=== PATIENT | female | born 2000 | race Caucasian/White ===

== ENCOUNTER → 2019-09-15 | Outpatient (CLI) | payer BC, MEDICAID ==
[~2019-09-15] MED LIST: ALDA100T PO; MULTCAP PO; ORTH1TAB8 PO
== END ==
LOC: M LABSMTC 10:04
PROVIDERS: ATTEND Anesthesiology
DX: Z11.59 Encounter for screening for other viral diseases (principal); Z03.89 Encounter for observation for other suspected diseases and conditions ruled out
CPT/HCPCS: C9803; U0003

== ENCOUNTER 2019-09-18 06:11 | Day surgery (SDC) | payer OTHER ==
[~2019-09-18] VITALS: Ht 157.5 cm; Wt 55.8 kg
[2019-09-18] MEDS ORDERED: LR 1,000 ML IV ONE (07:00)
[2019-09-18] MEDS ORDERED: ceFAZolin SOD 2 GM in IV 1 EA IV ONE (07:00)
[2019-09-18] MEDS ORDERED: dexameTHASONE 4 MG/ML 1ML VIAL (J1100 PER 1MG) As Ordered ONE (07:11)
[2019-09-18] MEDS ORDERED: propofoL 200 MG/20 ML VIAL As Ordered ONE (07:11)
[2019-09-18] MEDS ORDERED: ONDANSETRON 4MG/2ML VIAL As Ordered ONE (07:11)
[2019-09-18] MEDS ORDERED: LIDOCAINE 2% 100MG/5ML SDV (FOR ANES.) As Ordered ONE (07:11)
[2019-09-18] MEDS ORDERED: fentaNYL 100 MCG/2 ML INJECTION (J3010) As Ordered ONE ×2 (07:11→08:05)
[2019-09-18] MEDS ORDERED: MIDAZOLAM INJ 2MG/2ML VIAL (J2250 PER 1MG) As Ordered ONE (07:11)
[2019-09-18] MEDS ORDERED: SCOPOLAMINE 1MG TRANSDERMAL PATCH TOP ONE (07:15)
[2019-09-18] MEDS ORDERED: ROCURONIUM BROMIDE 50 MG/5 ML VIAL As Ordered ONE (07:17)
[2019-09-18] MEDS ORDERED: METOCLOPRAMIDE INJ 10MG/2ML VIAL (J2765 PER 1) As Ordered ONE (07:18)
[2019-09-18] MEDS ORDERED: ROPIvacaine 0.5% 30ML INJECTION (J2795 PER 1MG) As Ordered ONE (07:19)
[2019-09-18] MEDS ORDERED: SUGAMMADEX SODIUM 500 MG/5 ML VIAL (BRIDION) As Ordered ONE (07:57)
[2019-09-18] MEDS ORDERED: ACETAMINOPHEN 1000MG 100ML IV BTL (OFIRMEV) (J0131 PER 10MG) As Ordered ONE (07:57)
[2019-09-18] MEDS ORDERED: KETOROLAC 60MG 2ML VIAL As Ordered ONE (07:57)
[2019-09-18] MEDS ORDERED: oxyCODONE 5MG TAB PO PRN (10:30)
[2019-09-18] MEDS ORDERED: fentaNYL 100 MCG/2 ML INJECTION (J3010) IV PRN (10:30)
[2019-09-18] MEDS ORDERED: ONDANSETRON 4MG/2ML VIAL IV PRN ×2 (10:30→10:45)
[2019-09-18] MEDS ORDERED: LR 1,000 ML IV SCH ×2 (10:30→10:45)
[2019-09-18] MEDS ORDERED: ACETAMINOPHEN TAB 650MG DOSE (2X325MG) PO PRN (10:45)
[2019-09-18] MEDS ORDERED: PERCOCET 5MG/325MG TAB PO PRN (10:45)
[2019-09-18] MEDS ORDERED: MORPHINE 2 MG/ML 1ML VIAL (J2270) IV PRN (10:45)
[2019-09-18 12:10] VITALS: BP 120/70
--- NOTE | 2019-09-19 09:54 | IPN ---
DATE: 09/18/2019 This is a voice consultation record of talking to Lisa's mother. We discussed the risk and benefits going on oral aspirin one full-strength tablet 325 mg orally once a day for 30 days after surgery for venous thromboembolism (VTE) prophylaxis. Lisa is young and relatively low risk but she did have lower extremity surgery. She may be mobilized temporarily and she is on oral contraceptive pills. Risks of going on VTE prophylaxis with the increased bleeding risk both at the surgical site as well as intracranial. After discussion with her mother, she wished go ahead on temporary VTE prophylaxis.
--- NOTE | 2019-09-19 10:15 | RO ---
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 PLANNED PROCEDURE: Right knee anterior cruciate ligament bone tunnel grafting and debridement of anterior cruciate ligament. PROCEDURE PERFORMED: Right knee anterior cruciate ligament bone tunnel grafting and debridement of anterior cruciate ligament. SURGEON: Hiro Rodarte MD IN [employer]FU[employer] OPERATOR: Marilee Costello REVENUE MANAGER: Dr. Gonzalez TYPE OF ANESTHETIC: General anesthetic. OPERATIVE PREAMBLE: This 19-year-old female is experiencing signs and symptoms as well as physical exam findings and MRI evidence of ACL insufficiency with tunnel dilation. We talked about the pros, cons, risks, benefits of going ahead with two-stage operation , first stage bone grafting, second stage hamstrings ACL autograft reconstruction. She wished to go ahead. I reiterated the risks in preoperative holding, marked the right lower extremity, and proceeded to surgery, as well as signing and updating consent form. OPERATIVE REPORT: The patient was brought to operating theater. They were administered 2 grams of intravenous (IV) Ancef. They were administered general anesthetic. All bony prominences were padded. Tourniquet was used on the right thigh, appropriately padded. Stress positioner was used on the patient's right side. Left side had a sequential compression device (SCD) used. All bony prominences were padded. Limb was prepped and draped in the usual sterile fashion, allowing over 3 minutes prep solution drying time. Preoperative time-out was performed to confirm the site, the patient, and the operation. Began by elevating the limb and inflating the tourniquet to 250 mmHg. I made standard anterolateral and anteromedial arthroscopy portals. I examined the intra-articular extent of the knee. Cartilage appeared normal throughout the knee. No obvious meniscus tears or flaps. ACL graft was stretched but in place. This was debrided, which debrided away quite easily. Did not appear fully healed into the femoral tunnel. The tibial tunnel appeared in proper position. The femoral tunnel appeared anterior; in its placement, however, it was adequately low on the wall. ACL was thoroughly debrided. I then made a small anteromedial incision overlying the anterior aspect of the tibia. I fully debrided away any remaining graft from the tunnel. I cleared away any soft tissue from the wall. I reamed up to a size 14. This appeared appropriate with good bony contact all around. I then turned my attention to the femoral side. I hyperflexed the knee. I passed the guidepin through the old graft tunnel site. I reamed this up to a size 14, which appeared appropriate. I performed a small notchplasty of approximately a millimeter on the medial side of the lateral femoral condyle. I then delivered a 14 mm plug into the femoral tunnel, Arthrex cannulated bone dowels. I inserted this flush. I had drilled to about 26 mm tunnels. I inserted the graft. I fully seated the graft. The graft was 27 mm long. I then used a bur to smooth about 1 mm of graft surface that was a little proud. I then turned my attention to the tibial side. I again inserted the bone dowel. The bone dowel proximally did fragment for a length of about 2 cm. This was removed and back-filled with AlloSync Arthrex bone putty. Graft was sitting flush with the proximal aspect of the tibial tunnel. I took final arthroscopy pictures. These were saved onto the system. I thoroughly irrigated the knee. Subcutaneous tissue was closed with 2-0 Vicryl and skin with #3-0 Monocryl. Steri-Strips were applied. 30 mL of 0.5% ropivacaine was instilled in and around the incision sites. I had to make an accessory anteromedial portal in order to pass the femoral graft. The skin was cleaned with wet and dry dressing, followed by application of Adaptic, 4 x 8 gauze, ABD dressing, and sterile 6-inch Morgan bandages. The patient was woken up from the general anesthetic, transferred off the operating table, and taken to the postanesthetic care unit in stable condition. All sponge, needle, and instrument counts were correct. No complications. ESTIMATED BLOOD LOSS: 50 mL. Plan for the patient is to be weightbearing as tolerated in a hinged knee brace. Followup in the office in 2 weeks' time. They will be discharged home according to day surgery criteria. We will wait at least 3 months for graft incorporation before obtaining a CT scan and proceeding on to second stage. SAGAR
== END 2019-09-18 12:12 | disposition home or self-care (01) ==
LOC: M SDC 06:11
PROVIDERS: ATTEND Orthopaedic Surgery Sports Medicine
DX: S83.511A Sprain of anterior cruciate ligament of right knee, initial encounter (principal); X58.XXXA Exposure to other specified factors, initial encounter; Y92.89 Other specified places as the place of occurrence of the external cause; Y93.9 Activity, unspecified; Y99.9 Unspecified external cause status; G43.909 Migraine, unspecified, not intractable, without status migrainosus; J45.909 Unspecified asthma, uncomplicated; Z79.899 Other long term (current) drug therapy
CPT/HCPCS: 29877; 29999; 81025; C1762; J0131; J0690; J1100; J1885; J2250; J2405; J2765; J2795; J3010

== ENCOUNTER → 2019-12-29 | Outpatient (CLI) | payer OTHER ==
--- NOTE | 2020-01-03 15:23 | REP ---
CT SCAN OF THE RIGHT KNEE WITHOUT CONTRAST HISTORY: Sprain of anterior cruciate ligament of the right knee. COMPARISON: CT studies from March 03, 2019. Comparison MRI study is from March 03, 2019. TECHNIQUE: Helical scanning is acquired. 3 mm axial images were reformatted. Coronal and sagittal MPR images are generated. CT FINDINGS: In the interval since the March 03, 2019, CT study, the ACL reconstruction has been revised. Radiopaque plug-type material is seen in the widened tibial and distal femoral tendon tunnels. A metallic anchor device is seen at the lateral cortex of the distal femoral tunnel. There is a faintly opaque density at the external end of the tibial tunnel. Soft tissue bulge persists at the external end of the tibial tunnel. There is a small amount of joint effusion. No Bakers cyst is seen by CT. No acute erosive changes are noted. IMPRESSION: Status post ACL revision with opaque material in the tibial and distal femoral tunnels. The interosseous tunnels were previously noted to be widened consistent with mucoid degeneration. MTDD
== END ==
LOC: M RAD 13:51
PROVIDERS: ATTEND Orthopaedic Surgery Sports Medicine
DX: S83.511D Sprain of anterior cruciate ligament of right knee, subsequent encounter (principal); X58.XXXD Exposure to other specified factors, subsequent encounter; Z87.828 Personal history of other (healed) physical injury and trauma

== ENCOUNTER → 2020-02-09 | Outpatient (CLI) | payer OTHER ==
[~2020-02-09] MED LIST changes: +CETI-36 PO; +SING10TA32 PO
== END ==
LOC: M LABSMTC 09:40
PROVIDERS: ATTEND Anesthesiology
DX: Z01.812 Encounter for preprocedural laboratory examination (principal); Z20.828 Contact with and (suspected) exposure to other viral communicable diseases

== ENCOUNTER 2020-02-14 06:19 | Day surgery (SDC) | payer OTHER ==
[~2020-02-14] VITALS: Ht 157.5 cm; Wt 57.2 kg
[2020-02-14] MEDS ORDERED: ceFAZolin SOD 2 GM in IV 1 EA IV ONE (07:00)
[2020-02-14] MEDS ORDERED: LR 1,000 ML IV ONE (07:00)
[2020-02-14] MEDS ORDERED: ROCURONIUM BROMIDE 50 MG/5 ML VIAL As Ordered ONE (07:15)
[2020-02-14] MEDS ORDERED: propofoL 200 MG/20 ML VIAL As Ordered ONE ×2 (07:15→08:54)
[2020-02-14] MEDS ORDERED: SCOPOLAMINE 1MG TRANSDERMAL PATCH TOP ONE (07:15)
[2020-02-14] MEDS ORDERED: LIDOCAINE 2% 100MG/5ML SDV (FOR ANES.) As Ordered ONE ×3 (07:15→07:22)
[2020-02-14] MEDS ORDERED: fentaNYL 100 MCG/2 ML INJECTION (J3010) As Ordered ONE ×2 (07:16→10:02)
[2020-02-14] MEDS ORDERED: dexameTHASONE 4 MG/ML 1ML VIAL (J1100 PER 1MG) As Ordered ONE (07:16)
[2020-02-14] MEDS ORDERED: ONDANSETRON 4MG/2ML VIAL As Ordered ONE (07:16)
[2020-02-14] MEDS ORDERED: MIDAZOLAM INJ 2MG/2ML VIAL (J2250 PER 1MG) As Ordered ONE ×3 (07:16→11:11)
[2020-02-14] MEDS ORDERED: ROPIvacaine 0.5% 30ML INJECTION (J2795 PER 1MG) As Ordered ONE (07:16)
[2020-02-14] MEDS ORDERED: KETOROLAC 60MG 2ML VIAL As Ordered ONE (09:39)
[2020-02-14] MEDS ORDERED: ACETAMINOPHEN 1000MG 100ML IV BTL (OFIRMEV) (J0131 PER 10MG) As Ordered ONE (09:40)
[2020-02-14] MEDS ORDERED: HYDROMORPHONE HCL 0.5 MG/ 0.5 ML SYRINGE (J1170 PER 1) IV PRN (11:15)
[2020-02-14] MEDS ORDERED: PERCOCET 5MG/325MG TAB PO PRN (11:15)
[2020-02-14] MEDS ORDERED: oxyCODONE 5MG TAB PO PRN (11:15)
[2020-02-14] MEDS ORDERED: ACETAMINOPHEN TAB 650MG DOSE (2X325MG) PO PRN (11:15)
[2020-02-14] MEDS ORDERED: fentaNYL 100 MCG/2 ML INJECTION (J3010) IV PRN (11:15)
[2020-02-14] MEDS ORDERED: LR 1,000 ML IV SCH ×2 (11:15)
[2020-02-14] MEDS ORDERED: ONDANSETRON 4MG/2ML VIAL IV PRN ×2 (11:15)
[2020-02-14] MEDS ORDERED: MORPHINE 2 MG/ML 1ML VIAL (J2270) IV PRN (11:15)
[2020-02-14 12:30] VITALS: BP 112/53
--- NOTE | 2020-02-22 12:23 | RO ---
OPERATIVE NOTE DATE OF OPERATION: 02/14/2020 PREOPERATIVE DIAGNOSIS: Right ACL tear. POSTOPERATIVE DIAGNOSIS: Right ACL tear. PLANNED PROCEDURE: Right knee hamstring ACL reconstruction. PROCEDURE PERFORMED: Right knee hamstring ACL reconstruction. SURGEON: Hiro Rodarte MD ANESTHESIOLOGIST: Dr. Leonard. ANESTHESIA: General anesthetic. EXECUTIVE PERSONAL ASSISTANT: Jayesh Bill PA-C OPERATIVE PREAMBLE: This is a 19-year-old female who had two allograft-failed ACL reconstructions. We performed first-stage bone grafting. She is here today a second-stage ACL reconstruction with hamstring autograft. We answered her questions. We saw her in the preoperative holding area, marked the right lower extremity and proceeded to surgery. OPERATIVE REPORT: The patient was brought to the operating theater. She was administered 2 gm IV Ancef. She was placed supine on the operating room table. A stress positioner was used to the patient's right side, a small bump under the hip. All bony prominences were appropriately padded. General anesthesia was induced. A tourniquet was applied to the thigh and appropriately padded. The limb was prepped and draped in the usual sterile fashion with chlorhexidine based prep solution, allowing over 3 minutes for prep solution drying time prior to draping. A preoperative timeout was performed, confirming the site, the patient and surgery. I began by elevating the limb, then inflating the tourniquet to 250 mmHg for approximately 90 minutes through the duration of the case. I used the previous anteromedial incision. I carried dissection down through skin and subcutaneous tissue, achieving meticulous hemostasis. I used an oblique incision overlying the sartorial fascia. Then I held this with the two hamstring tendons, sharply excised them off the proximal anterior tibia and placed . I then the tendons, cleared away any soft tissue. I put them end-on-end and sutured each end with #2 FiberWire for a length of 2.5 cm. I used a triple-over technique with #2 FiberWire locking loop stitches, burying the knot at 1 and 2 cm from each end of the graft. I used the TightRope ____ on the femoral side ____ system on the tibial side. Graft size 10 mm on both sides to allow for a length of 6.5 cm. The graft was placed on tension and wrapped with a wet sponge. I then turned my attention back to the knee. I made standard anterolateral and anteromedial portals. I cleared away any soft tissue. Bone graft appeared to be healed. I attempted to have arthroscopy pictures throughout the case and saved them on the system. The lateral meniscus had a small area of previous meniscectomy. The area was inspected, no obvious new tears in the medial or lateral meniscus. The cartilage appeared normal, no obvious loose body in the medial or lateral gutter. The patellofemoral cartilage appeared normal. I used the FlipCutter instead of a drill to drill an approximately 3 cm tunnel retrograde in the femoral side with approximately 1 cm cortical bridge. On the tibial side, I again used a 10 mm third-generation FlipCutter to retrograde drill a 4 cm tunnel with a 1 cm flexible cortical bridge. I cleared away interposed soft tissue and bony debris. I then passed the graft. I used sutures into the femoral tunnel. I secured the femoral side graft for a length of approximately 2.5 to 3 cm. I then passed the suture materials through the tibial tunnel. I used the standard ABS button loop system sutures to secure the ____ button. The graft was stable and solid, stable Funmilayo, firm endpoint. The knee was cycled prior to fixation at least 15 times. No graft impingement in extension or in the notch. The graft was stable and solid. Then I backed up the tibial fixation with a 4.25 mm biocomposite Arthrex SwiveLock with the backup sutures. All suture ends were cut short. The wounds were thoroughly irrigated. The subcutaneous tissue was closed with interrupted 2-0 Vicryl sutures and the skin with 3-0 Monocryl. The skin was cleaned with wet and dry dressing. 20 mL of 1/4% Marcaine was instilled in and around the soft tissues. Steri-Strips, Adaptic, 4 x 8 gauze and ABD dressing was the placed and overwrapped with sterile 6-inch Morgan bandage. The patient was reversed from anesthetic, transferred off the operating room table and then taken to the postanesthetic care unit in stable condition. All sponge, needle, and instrument counts were correct. No complications. Estimated blood loss: 100 mL. Plan for the patient is to be range of motion as tolerated, weightbearing as tolerated. She will be on crutches for two weeks, be discharged home according to day surgery criteria. Prescription will be sent to her pharmacy of choice electronically. The assistance, Jayesh Bill PA-C, was instrumental in holding the retractors, achieving positions and completing the case.
== END 2020-02-14 12:30 | disposition home or self-care (01) ==
LOC: M SDC 06:19
PROVIDERS: ATTEND Orthopaedic Surgery Sports Medicine
DX: S83.31XA Tear of articular cartilage of right knee, current, initial encounter (principal); Y92.89 Other specified places as the place of occurrence of the external cause; Y93.9 Activity, unspecified; Y99.9 Unspecified external cause status; F41.9 Anxiety disorder, unspecified; G43.909 Migraine, unspecified, not intractable, without status migrainosus; Z79.899 Other long term (current) drug therapy
CPT/HCPCS: 27427; 81025; C1713; J0131; J0690; J1100; J1885; J2250; J2405; J2795; J3010

== ENCOUNTER → 2022-08-25 | Outpatient (CLI) | payer OTHER ==
[~2022-08-25] MED LIST changes: +MONT-5 PO; -SING10TA32 PO
[2022-08-25 14:39] LABS: APPEARANCE, URINE HAZY (CLEAR); BACTERIA, URINE AUTO 1+ (NEGATIVE); BILIRUBIN, URINE AUTO NEGATIVE (NEGATIVE); BLOOD, URINE BLOOD NEGATIVE (NEGATIVE); COLOR, URINE YELLOW (YELLOW); GLUCOSE, URINE (UA) AUTO NEGATIVE (NEGATIVE); KETONE, URINE AUTO NEGATIVE (NEGATIVE); LEUKOCYTE ESTERASE, URINE AUTO 2+ (NEGATIVE); MUCUS, URINE SMALL (NEGATIVE); NITRITE, URINE AUTO NEGATIVE (NEGATIVE); PROTEIN, URINE AUTO NEGATIVE (NEGATIVE); RBC, URINE AUTO 5 /HPF (0-3); SPECIFIC GRAVITY URINE AUTO 1.018 (1.002-1.035); SQUAMOUS EPITHELIAL CELL UR AU 5 /HPF (0-6); TRANSITIONAL EPITHELIAL AUTO 1 /HPF; UROBILINOGEN, URINE AUTO 0.2 mg/dL (0.0-2.0); WBC, URINE AUTO TNTC /HPF (0-3)
[2022-08-25 14:40] LABS: HEMATOCRIT 34.8 % (36.0-47.0); HEMOGLOBIN 11.6 g/dl (12.0-15.5); MEAN CORPUSCULAR HEMOGLOBIN 28.8 pg (27.0-33.0); MEAN CORPUSCULAR HGB CONC 33.3 g/dl (32.0-36.5); MEAN CORPUSCULAR VOLUME 86.4 fl (80.0-96.0); PLATELET COUNT, AUTOMATED 267 10^3/uL (150-450); RED BLOOD COUNT 4.03 10^6/uL (4.00-5.40); WHITE BLOOD COUNT 9.6 10^3/uL (4.0-10.0)
[2022-08-25 15:40] LABS: HIV 1&2 SCREEN NEGATIVE (NEGATIVE)
[2022-08-25 15:49] LABS: HEPATITIS C VIRUS ABY INDEX 0.1 INDEX (<0.8)
[2022-08-25 17:08] LABS: GC DNA AMPLIFICATION NEGATIVE (NEGATIVE)
== END ==
LOC: M PLALAB 10:41
PROVIDERS: ATTEND Advanced Practice Midwife
DX: Z34.01 Encounter for supervision of normal first pregnancy, first trimester (principal)

== ENCOUNTER → 2022-09-29 | Outpatient (REF) | payer OTHER | LOC: M SFHCWAGY 16:50 | PROVIDERS: ATTEND Obstetrics & Gynecology | DX: Z34.01 Encounter for supervision of normal first pregnancy, first trimester (principal) ==

== ENCOUNTER → 2022-11-10 | Outpatient (CLI) | payer OTHER | LOC: M WHC 14:32 | PROVIDERS: ATTEND Obstetrics & Gynecology | DX: Z34.01 Encounter for supervision of normal first pregnancy, first trimester (principal) ==

== ENCOUNTER → 2022-12-29 | Outpatient (CLI) | payer OTHER ==
[2022-12-29 10:34] LABS: HEMATOCRIT 31.2 % (36.0-47.0); HEMOGLOBIN 10.4 g/dl (12.0-15.5); MEAN CORPUSCULAR HEMOGLOBIN 29.5 pg (27.0-33.0); MEAN CORPUSCULAR HGB CONC 33.3 g/dl (32.0-36.5); MEAN CORPUSCULAR VOLUME 88.6 fl (80.0-96.0); PLATELET COUNT, AUTOMATED 248 10^3/uL (150-450); RED BLOOD COUNT 3.52 10^6/uL (4.00-5.40); WHITE BLOOD COUNT 8.6 10^3/uL (4.0-10.0)
== END ==
LOC: M PLALAB 07:40
PROVIDERS: ATTEND Advanced Practice Midwife
DX: Z34.02 Encounter for supervision of normal first pregnancy, second trimester (principal); Z3A.00 Weeks of gestation of pregnancy not specified

== ENCOUNTER → 2023-03-10 | Outpatient (REF) | payer OTHER | LOC: M SFHCWAGY 10:20 | PROVIDERS: ATTEND Obstetrics & Gynecology | DX: Z36.85 Encounter for antenatal screening for Streptococcus B (principal); Z3A.36 36 weeks gestation of pregnancy ==

== ENCOUNTER 2023-03-27 18:22 | Inpatient (IN) | payer OTHER ==
[~2023-03-27] VITALS: Ht 157.5 cm; Wt 81.1 kg
[2023-03-27 18:43] VITALS: BP 154/75
[2023-03-27] MEDS ORDERED: PENICILLIN G POTASSIUM 5 MU IV 5 MU in D5W MINI-BAG PLUS 100 ML IV STA (18:58)
[2023-03-27] MEDS ORDERED: LACTATED RINGER'S 1000 ML IV STA (18:58)
[2023-03-27] MEDS ORDERED: ACET-907 PO (18:59)
[2023-03-27] MEDS ORDERED: PRENTAB9 PO (18:59)
[2023-03-27] MEDS ORDERED: TRANEXAMIC ACID INJection 1,000 MG in NS 100 ML IV PRN (19:00)
[2023-03-27] MEDS ORDERED: LIDOCAINE 1% MDV 20ML VIAL INFIL PRN (19:00)
[2023-03-27] MEDS ORDERED: OXYTOCIN DRIP 30 UNITS in IV 1 EA IV PRN (19:00)
[2023-03-27] MEDS ORDERED: METHYLERGONOVINE MALEATE 0.2MG/ML 1ML VIAL IM PRN (19:00)
[2023-03-27] MEDS ORDERED: CARBOPROST TROMETHAMINE 250 MCG/ML AMP IM PRN (19:00)
[2023-03-27] MEDS ORDERED: HOME MED LIST COMPLETE! XX SCH (19:05)
[2023-03-27 19:20] LABS: HEMATOCRIT 32.6 % (36.0-47.0); HEMOGLOBIN 10.8 g/dl (12.0-15.5); MEAN CORPUSCULAR HEMOGLOBIN 26.1 pg (27.0-33.0); MEAN CORPUSCULAR HGB CONC 33.1 g/dl (32.0-36.5); MEAN CORPUSCULAR VOLUME 78.7 fl (80.0-96.0); PLATELET COUNT, AUTOMATED 247 10^3/uL (150-450); RED BLOOD COUNT 4.14 10^6/uL (4.00-5.40); WHITE BLOOD COUNT 10.1 10^3/uL (4.0-10.0)
[2023-03-27 20:16] VITALS: BP 149/80
[2023-03-27 20:34] VITALS: BP 143/82
[2023-03-27 21:56] VITALS: BP 111/69
[2023-03-27] MEDS ORDERED: BUTORPHANOL 2 MG/ML 1ML VIAL IV ONE (22:30)
[2023-03-27] MEDS ORDERED: PROMETHAZINE 25MG/ML 1ML VIAL IV ONE (22:30)
[2023-03-27 22:47] VITALS: BP 139/85
[2023-03-27 23:07] VITALS: BP 139/75
[2023-03-27] MEDS: PEN G POT 3,000,000 UNIT/50 ML 3,000,000 UNIT in IV 1 EA IV SCH (23:08)
[2023-03-28] VITALS (24 sets, daily range): BP systolic 108–171; BP diastolic 53–97; TEMP 97.1; O2SAT 96–98
[2023-03-28] MEDS: PEN G POT 3,000,000 UNIT/50 ML 3,000,000 UNIT in IV 1 EA IV SCH (02:56)
[2023-03-28] MEDS ORDERED: EPIDURAL/PCA KEYS XX PRN (04:25)
[2023-03-28] MEDS ORDERED: FENTANYL/ROPIVACAINE/NACL BAG 100 ML EPIDURAL SCH (04:25)
[2023-03-28] MEDS ORDERED: diphenhydrAMINE 50MG/ML VIAL IV PRN ×2 (04:25→10:00)
[2023-03-28] MEDS ORDERED: ONDANSETRON 4MG 2ML VIAL IV PRN ×3 (04:25→10:00)
[2023-03-28] MEDS ORDERED: LR 500 ML IV PRN (04:25)
[2023-03-28] MEDS ORDERED: NALOXONE INJ 0.4MG/1ML VIAL IV PRN ×3 (04:25→10:00)
[2023-03-28] MEDS ORDERED: ePHEDrine SULFATE 25 MG/5 ML(5MG/ML) SYRINGE IVP PRN (04:25)
[2023-03-28] MEDS ORDERED: LR 1,000 ML IV SCH ×2 (06:05→10:00)
[2023-03-28] MEDS ORDERED: BICITRA 30ML SOLN UDC PO ONE (07:05)
[2023-03-28] MEDS ORDERED: ceFAZolin SOD 2 GM in IV 1 EA IV ONE (07:05)
[2023-03-28] MEDS ORDERED: AZITHROMYCIN INJ 500 MG, VIAL MATE ADAPTER 1 EACH in NS 250 ML IV ONE (07:05)
[2023-03-28] MEDS ORDERED: MORPHINE PRES-FREE INJ 10 MG/10 ML VIAL As Ordered ONE (07:25)
[2023-03-28] MEDS ORDERED: LIDOCAINE 2% W/EPINEPHRINE 20ML VIAL **PRES FREE As Ordered ONE (07:25)
[2023-03-28] MEDS ORDERED: ONDANSETRON 4MG 2ML VIAL As Ordered ONE (07:25)
[2023-03-28] MEDS ORDERED: KETOROLAC 60MG 2ML VIAL As Ordered ONE (07:26)
[2023-03-28] MEDS ORDERED: OXYTOCIN 30UNITS IN 0.9% NaCl 500ML IV BAG As Ordered ONE ×2 (07:28→08:30)
[2023-03-28] MEDS ORDERED: ePHEDrine SULFATE 25 MG/5 ML(5MG/ML) SYRINGE As Ordered ONE (07:28)
[2023-03-28] MEDS ORDERED: ACETAMINOPHEN 1000MG 100ML IV BAG As Ordered ONE (07:28)
[2023-03-28 07:52] LABS: CORD GAS ABE V -4.4; CORD GAS HCO3 V 21.2 MMOL/L; CORD GAS PH V 7.332 UNITS; CORD GAS PO2 V 23.2 mmHg; CORD GAS SBC V 19.8 MMOL/L; CORD GAS TCO2 V 22.5 MMOL/L
[2023-03-28 07:53] LABS: CORD GAS ABE A -6.5; CORD GAS HCO3 A 19.5 MMOL/L; CORD GAS O2 SAT A 84.6 %; CORD GAS PCO2 A 40.8 mmHg; CORD GAS PH A 7.297 UNITS; CORD GAS PO2 A 40.6 mmHg; CORD GAS SBC A 18.9 MMOL/L; CORD GAS TCO2 A 20.7 MMOL/L
[2023-03-28] MEDS ORDERED: OXYTOCIN DRIP 30 UNITS in IV 1 EA IV SCH (08:20)
[2023-03-28] MEDS ORDERED: ANUSOL HC CREAM 30GM TOP PRN (08:20)
[2023-03-28] MEDS ORDERED: PERCOCET 5MG/325MG TAB PO PRN ×2 (08:20)
[2023-03-28] MEDS ORDERED: SIMETHICONE 80MG CHEW TAB PO PRN (08:20)
[2023-03-28] MEDS ORDERED: ACETAMINOPHEN 500 MG TAB PO PRN (08:20)
[2023-03-28] MEDS ORDERED: MORPHINE 4 MG/ML 1ML VIAL IV PRN (08:20)
[2023-03-28] MEDS ORDERED: RHOGAM 300MCG (1500IU) INJ IM SCH (08:20)
[2023-03-28] MEDS ORDERED: PERCOCET PO (08:28)
[2023-03-28] MEDS ORDERED: IBUP80TA PO (08:28)
[2023-03-28] MEDS ORDERED: COLA100C5 PO (08:28)
[2023-03-28] MEDS: PRENATAL VITAMINS CHEWABLE TABLET PO SCH (09:00)
[2023-03-28] MEDS: DOCUSATE SODIUM 100MG CAPSULE PO SCH ×2 (09:00→19:46)
[2023-03-28] MEDS: LR 1,000 ML IV SCH ×2 (09:38→16:20)
[2023-03-28] MEDS ORDERED: METOCLOPRAMIDE INJ 10MG/2ML VIAL IV PRN (10:00)
[2023-03-28] MEDS ORDERED: **NOTE PATIENT COMMENT** MISC XX SCH (10:00)
[2023-03-28] MEDS ORDERED: oxyCODONE 5MG TAB PO PRN (10:00)
[2023-03-28] MEDS ORDERED: fentaNYL 100 MCG/2 ML INJECTION IV PRN (10:00)
[2023-03-28] MEDS ORDERED: PROMETHAZINE 25MG/ML 1ML VIAL IV PRN (10:00)
[2023-03-28] MEDS ORDERED: NALBUPHINE HCL 1MG/0.1ML (100MG/10ML) MDV IV PRN ×2 (10:00)
[2023-03-28] MEDS: SLF 3 ML SYR IV SCH ×2 (11:30→18:00)
[2023-03-28] MEDS: KETOROLAC 30 MG/ML 1ML VIAL IV SCH ×2 (14:00→19:46)
[2023-03-29] MEDS: KETOROLAC 30 MG/ML 1ML VIAL IV SCH (01:58)
[2023-03-29] MEDS: SLF 3 ML SYR IV SCH (01:58)
[2023-03-29 02:00] VITALS: BP 118/58; O2SAT 98
[2023-03-29 06:13] VITALS: BP 125/60; O2SAT 97
[2023-03-29 06:43] LABS: HEMATOCRIT 25.6 % (36.0-47.0); MEAN CORPUSCULAR HEMOGLOBIN 26.4 pg (27.0-33.0); MEAN CORPUSCULAR VOLUME 82.3 fl (80.0-96.0); PLATELET COUNT, AUTOMATED 161 10^3/uL (150-450); RED BLOOD COUNT 3.11 10^6/uL (4.00-5.40); WHITE BLOOD COUNT 9.1 10^3/uL (4.0-10.0)
[2023-03-29 07:10] LABS: HEMOGLOBIN 8.2 g/dl (12.0-15.5)
[2023-03-29] MEDS: DOCUSATE SODIUM 100MG CAPSULE PO SCH ×2 (08:53→20:09)
[2023-03-29] MEDS: PRENATAL VITAMINS CHEWABLE TABLET PO SCH (08:53)
[2023-03-29] MEDS: IBUPROFEN 800 MG TAB PO SCH ×2 (08:54→17:34)
[2023-03-29 10:00] VITALS: BP 128/77; O2SAT 98
[2023-03-29 18:00] VITALS: BP 128/76; O2SAT 98
[2023-03-29 22:00] VITALS: BP 124/63; O2SAT 100
[2023-03-30] MEDS: IBUPROFEN 800 MG TAB PO SCH ×2 (01:56→09:50)
[2023-03-30 02:00] VITALS: BP 129/75; O2SAT 96
[2023-03-30 06:00] VITALS: BP 129/70; O2SAT 98
[2023-03-30] MEDS: DOCUSATE SODIUM 100MG CAPSULE PO SCH (08:24)
[2023-03-30] MEDS: PRENATAL VITAMINS CHEWABLE TABLET PO SCH (08:24)
[2023-03-30] MEDS ORDERED: MEASLES,MUMPS,RUBELLA VACCINE INJ (MMR-II) SC.IMMUN ONE (09:00)
== END 2023-03-30 12:38 | disposition home or self-care (01) | DRG 540 ==
LOC: M LDO 18:22 → M LDI 19:07 → M OBS 03-28 10:05
PROVIDERS: ADMIT Obstetrics & Gynecology; ATTEND Obstetrics & Gynecology
PROC: 10D00Z1 Extraction of Products of Conception, Low, Open Approach (ICD-10-PCS; principal; 2023-03-28 07:30)
DX: O62.0 Primary inadequate contractions (principal); O99.824 Streptococcus B carrier state complicating childbirth; Z37.0 Single live birth; Z3A.39 39 weeks gestation of pregnancy; O76 Abnormality in fetal heart rate and rhythm complicating labor and delivery